=== PATIENT | female | born 1980 | race Asian ===

== ENCOUNTER 2018-09-13 13:57 | Emergency (ER) | payer BC ==
[2018-09-13] MEDS: ONDANSETRON (ODT) 4 MG TAB ODT (14:37)
[2018-09-13] MEDS: MECLIZINE 12.5 MG TAB PO (14:38)
== END 2018-09-13 16:20 | disposition home or self-care (01) ==
LOC: E/R 13:57
DX: R42 Dizziness and giddiness (principal); R40.2142 Coma scale, eyes open, spontaneous, at arrival to emergency department; R40.2362 Coma scale, best motor response, obeys commands, at arrival to emergency department; R40.2252 Coma scale, best verbal response, oriented, at arrival to emergency department; R11.0 Nausea
CPT/HCPCS: 70450; 81025; 82962; 99284-25